=== PATIENT | male | born 1950 | race African-American/Black ===

== ENCOUNTER 2018-09-11 12:15 | Inpatient (IN) | payer MEDICARE, MEDICAID ==
[~2018-09-11] VITALS: Ht 180.3 cm; Wt 73.5 kg
[2018-09-11] MEDS ORDERED: ONDANSETRON HCL 4MG/2ML INJ IV STA (14:56)
[2018-09-11] MEDS ORDERED: MORPHINE SULFATE 4 MG/ML CPJ (NOT FOR IM USE) IV STA (14:56)
[2018-09-11 15:27] LABS: CHLORIDE 106 mEq/L (98-107)
[2018-09-11 15:31] LABS: BASOPHILS % 0.3 % (0.0-2.0); HEMOGLOBIN. 15.2 g/dL (14.0-18.0); LYMPHOCYTES % 9.1 % (20.0-50.0); MEAN CORPUSCULAR HEMOGLOBIN 30.8 pg (28.0-32.0); MEAN CORPUSCULAR VOLUME 91.4 fL (80.0-94.0); MEAN PLATELET VOLUME 8.9 fl (7.4-10.4); MONOCYTES % 3.5 % (2.0-8.0); NEUTROPHILS % 87.1 % (40.0-76.0); PLATELET 184 x1000/uL (130-400); RED BLOOD CELL COUNT 4.92 mill/uL (4.7-6.1); RED CELL DISTRIBUTION WIDTH 14.3 % (11.6-14.6)
[2018-09-11] MEDS ORDERED: IOHEXOL-300 100 ML BOTTLE ONE (16:14)
[2018-09-11] MEDS ORDERED: ACETAMINOPHEN 325MG TABLET PO PRN (18:00)
[2018-09-11] MEDS ORDERED: MINERAL OIL ENEMA 133ML PR ONE (18:00)
[2018-09-11] MEDS ORDERED: LACTULOSE 20G/30ML UDC PO PRN (18:00)
[2018-09-11] MEDS ORDERED: ONDANSETRON HCL 4MG/2ML INJ IV PRN (18:00)
[2018-09-11 18:34] LABS: CLARITY URINE CLEAR (CLEAR); COLOR URINE DARK YELLOW (YELLOW); KETONES URINE TRACE (NEGATIVE); LEUKOCYTE ESTERASE URINE NEGATIVE (NEGATIVE); NITRITE URINE NEGATIVE (NEGATIVE); OCCULT BLOOD URINE NEGATIVE (NEGATIVE); PROTEIN URINE TRACE (NEGATIVE); SPECIFIC GRAVITY URINE 1.055 (1.005-1.030)
[2018-09-11] MEDS ORDERED: NA PHOS,M-B/NA PHOS,DI-BA ENEMA 118ML PR PRN (21:00)
[2018-09-11] MEDS: MORPHINE SULFATE 4 MG/ML CPJ (NOT FOR IM USE) IV PRN (21:58)
[2018-09-11] MEDS: CLONIDINE 0.1MG TABLET PO PRN (21:58)
[2018-09-11 22:55] VITALS: BP 153/90
[2018-09-11 23:00] VITALS: BP 159/90
[2018-09-12] VITALS (7 sets, daily range): BP systolic 123–188; BP diastolic 76–101
[2018-09-12] MEDS ORDERED: CLOP75TA33 PO (00:02)
[2018-09-12] MEDS ORDERED: VALS1TAB72 PO (00:02)
[2018-09-12] MEDS ORDERED: CARV12.545 MT (00:02)
[2018-09-12] MEDS ORDERED: LISI10TA5 PO (00:02)
[2018-09-12] MEDS: MORPHINE SULFATE 4 MG/ML CPJ (NOT FOR IM USE) IV PRN ×6 (01:36→23:48)
[2018-09-12] MEDS: CLONIDINE 0.1MG TABLET PO PRN (05:19)
[2018-09-12 05:36] LABS: BASOPHILS % 0.3 % (0.0-2.0); HEMATOCRIT. 47.8 % (42.0-52.0); HEMOGLOBIN. 16.1 g/dL (14.0-18.0); LYMPHOCYTES % 11.5 % (20.0-50.0); MEAN CORPUSCULAR HEMOGLOBIN 30.7 pg (28.0-32.0); MEAN CORPUSCULAR VOLUME 91.5 fL (80.0-94.0); MEAN PLATELET VOLUME 9.3 fl (7.4-10.4); MONOCYTES % 4.8 % (2.0-8.0); NEUTROPHILS % 83.4 % (40.0-76.0); PLATELET 212 x1000/uL (130-400); RED BLOOD CELL COUNT 5.23 mill/uL (4.7-6.1); RED CELL DISTRIBUTION WIDTH 14.5 % (11.6-14.6)
[2018-09-12 07:28] LABS: CHLORIDE 101 mEq/L (98-107)
[2018-09-12] MEDS: DOCUSATE SODIUM 250MG CAPSULE PO SCH (09:17)
[2018-09-12] MEDS: TAMSULOSIN HCL 0.4MG SR CAPSULE PO SCH (09:18)
[2018-09-12] MEDS: AMLODIPINE 5MG TABLET PO SCH ×2 (09:18→20:01)
[2018-09-12] MEDS: LOSARTAN POTASSIUM 50 MG TABLET PO SCH ×2 (09:18→20:01)
[2018-09-12] MEDS ORDERED: LACTULOSE 20G/30ML UDC PO SCH (13:00)
[2018-09-12] MEDS ORDERED: IPRATROPIUM/ALBUTEROL 0.5-3(2.5)MG/3ML NEB HHN PRN (13:15)
[2018-09-12] MEDS ORDERED: MORPHINE SULFATE 4 MG/ML CPJ (NOT FOR IM USE) IV SCH (13:15)
[2018-09-12] MEDS ORDERED: SORBITOL 70% SOLN 30ML PO NR (16:45)
[2018-09-13 05:28] VITALS: BP 132/86
[2018-09-13] MEDS: MORPHINE SULFATE 4 MG/ML CPJ (NOT FOR IM USE) IV PRN ×4 (05:40→19:53)
[2018-09-13] MEDS: DOCUSATE SODIUM 250MG CAPSULE PO SCH (08:50)
[2018-09-13] MEDS: AMLODIPINE 5MG TABLET PO SCH ×2 (08:51→20:47)
[2018-09-13] MEDS: LOSARTAN POTASSIUM 50 MG TABLET PO SCH ×2 (08:51→20:49)
[2018-09-13] MEDS: TAMSULOSIN HCL 0.4MG SR CAPSULE PO SCH (08:53)
[2018-09-13] MEDS ORDERED: SORBITOL 70% SOLN 30ML PO NR (10:30)
[2018-09-13] MEDS ORDERED: SENNOSIDES/DOCUSATE SOD 8.6/50MG TABLET PO NR (16:00)
[2018-09-13 19:55] VITALS: BP 120/78
[2018-09-13 20:10] LABS: BASOPHILS % 0.2 % (0.0-2.0); HEMATOCRIT. 48.6 % (42.0-52.0); HEMOGLOBIN. 16.5 g/dL (14.0-18.0); LYMPHOCYTES % 7.3 % (20.0-50.0); MEAN CORPUSCULAR HEMOGLOBIN 31.2 pg (28.0-32.0); MEAN CORPUSCULAR VOLUME 91.9 fL (80.0-94.0); MEAN PLATELET VOLUME 9.5 fl (7.4-10.4); MONOCYTES % 4.9 % (2.0-8.0); NEUTROPHILS % 87.6 % (40.0-76.0); PLATELET 224 x1000/uL (130-400); RED BLOOD CELL COUNT 5.29 mill/uL (4.7-6.1); RED CELL DISTRIBUTION WIDTH 14.6 % (11.6-14.6)
[2018-09-13] MEDS ORDERED: DEXTROSE 50% WATER 50ML SYRINGE IV PRN (21:30)
[2018-09-14 00:23] VITALS: BP 129/79
[2018-09-14] MEDS: MORPHINE SULFATE 4 MG/ML CPJ (NOT FOR IM USE) IV PRN (00:23)
[2018-09-14] MEDS ORDERED: SODIUM BICARBONATE 8.4% 1 MEQ/ML 50ML SYR IV ONE (01:00)
[2018-09-14] MEDS ORDERED: EPINEPHRINE 0.1MG/ML (1:10,000) 10ML SYR ONE (01:00)
[2018-09-14] MEDS ORDERED: MAGNESIUM SULFATE 4G IN WATER 100ML PREMIX IV ONE (01:00)
[2018-09-14] MEDS ORDERED: BLOOD SUGAR DIAGNOSTIC STRIP TEST SCH (07:10)
[2018-09-14] MEDS ORDERED: INSULIN LISPRO 100 UNITS/ML SUBCUT SCH (07:40)
== END 2018-09-14 01:53 | disposition expired | DRG 378 ==
LOC: ER 12:15 → 8WST 17:42 → EDBEDREQ 17:45 → ENRESERV 20:13
PROVIDERS: ADMIT Internal Medicine; ATTEND Internal Medicine
PROC: 5A12012 Performance of Cardiac Output, Single, Manual (ICD-10-PCS; 2018-09-11)
PROC: 5A1935Z Respiratory Ventilation, Less than 24 Consecutive Hours (ICD-10-PCS; principal; 2018-09-14)
PROC: 0BH17EZ Insertion of Endotracheal Airway into Trachea, Via Natural or Artificial Opening (ICD-10-PCS; 2018-09-14)
DX: K92.2 Gastrointestinal hemorrhage, unspecified (principal); K56.7 Ileus, unspecified; F17.210 Nicotine dependence, cigarettes, uncomplicated; K56.41 Fecal impaction; Z95.5 Presence of coronary angioplasty implant and graft; N40.0 Benign prostatic hyperplasia without lower urinary tract symptoms; J43.9 Emphysema, unspecified; D35.01 Benign neoplasm of right adrenal gland; I25.10 Atherosclerotic heart disease of native coronary artery without angina pectoris; N32.89 Other specified disorders of bladder; Z71.6 Tobacco abuse counseling; I25.2 Old myocardial infarction
CPT/HCPCS: 36415; 71045; 74018; 74177; 80048; 82962; 83036; 83880; 84484; 93005; 93970; 96374; 96375; 99285; J2270; J2405; J3475; J3490; J7620; Q9967